=== PATIENT | male | born 1985 | race American Indian/Alaskan Native ===

== ENCOUNTER 2021-10-22 03:53 | Emergency (ER) | payer MEDICAID ==
[2021-10-22] MEDS ORDERED: Ondansetron 4 MG Tab.DIS PO ONE (03:54)
[2021-10-22] MEDS ORDERED: LORazepam 1 MG Tab PO ONE (03:54)
[2021-10-22] MEDS ORDERED: MVI, Adult with Vitamin K 10 ML, Folic Acid 1 MG, Thiamine 100 MG in Lactated Ringers 1... IV ONE ×4 (04:06)
[2021-10-22 04:43] LABS: AMPHETAMINES,URINE NEGATIVE (NEGATIVE); BARBITURATES,URINE NEGATIVE (NEGATIVE); BENZODIAZEPINE,URINE NEGATIVE (NEGATIVE); MDMA (ECSTASY), URINE NEGATIVE (NEGATIVE); METHADONE,URINE NEGATIVE (NEGATIVE); METHAMPHETAMINES,URINE NEGATIVE (NEGATIVE); OPIATES,URINE NEGATIVE (NEGATIVE); OXYCODONE,URINE NEGATIVE (NEGATIVE); PHENCYCLIDINE,URINE NEGATIVE (NEGATIVE); TCA,URINE NEGATIVE (NEGATIVE)
[2021-10-22 04:50] VITALS: PULSE 85
[2021-10-22] MEDS ORDERED: Sodium Chloride 0.9% 1,000 ML IV ONE ×2 (05:04→08:25)
[2021-10-22] MEDS ORDERED: Potassium Chloride 20 MEQ in Premix Bag 1 BAG IV ONE (05:04)
[2021-10-22 05:45] VITALS: BP 118/75
[2021-10-22] MEDS ORDERED: Magnesium Sulfate/Water 2 GM in Premix Bag 1 BAG IV ONE (07:32)
[2021-10-22 08:07] LABS: ACETAMINOPHEN 14 ug/mL (10-30 (Therapeutic))
[2021-10-22 09:16] LABS: CORONAVIRUS COVID-19 NAA NEGATIVE (NEGATIVE)
[2021-10-22] MEDS ORDERED: LORazepam 1 MG Tab ONE (13:18)
[2021-10-22] MEDS ORDERED: Ondansetron 4 MG Tab.DIS ONE (13:18)
== END 2021-10-22 14:37 | disposition other institution (70) ==
LOC: DL.ED 03:53
DX: T39.1X2A Poisoning by 4-Aminophenol derivatives, intentional self-harm, initial encounter (principal); F10.10 Alcohol abuse, uncomplicated; Z20.822 Contact with and (suspected) exposure to COVID-19
CPT/HCPCS: 0240U; 36415; 80053; 80143; 80179; 80305-QW; 80307; 81003; 82150; 83690; 83735; 85025; 93005; 93010; 96361; 96365; 96366; 96367; 99284; 99285-25; A9270-GY; J3411; J3475; J3480; J3490; J7030; J7120

== ENCOUNTER 2021-10-23 00:13 | Emergency (ER) | payer MEDICAID ==
[2021-10-23 00:23] VITALS: PULSE 64
[2021-10-23] MEDS ORDERED: Lisinopril 10 MG Tab PO ONE (00:39)
[2021-10-23] MEDS ORDERED: LORazepam 1 MG Tab PO ONE (00:39)
[2021-10-23 00:50] VITALS: BP 153/94
== END 2021-10-23 01:00 | disposition other institution (70) ==
LOC: DL.ED 00:13
DX: F10.139 Alcohol abuse with withdrawal, unspecified (principal); Z91.013 Allergy to seafood
CPT/HCPCS: 99282; 99284; A9270-GY

== ENCOUNTER 2021-12-16 20:34 | Emergency (ER) | payer MEDICAID ==
[2021-12-16] MEDS ORDERED: Sodium Chloride 0.9% 10 ML Syringe FLUSH PRN (20:43)
[2021-12-16] MEDS ORDERED: MVI, Adult with Vitamin K 10 ML, Folic Acid 1 MG, Thiamine 100 MG in Lactated Ringers 1... IV ONE ×4 (20:44)
[2021-12-16 21:45] LABS: ANION GAP 21.4 mEq/L (7-13); CHLORIDE,CL 99 mmol/L (98-107); SODIUM,NA 141 mmol/L (136-145)
[2021-12-16 21:46] LABS: ESTIMATED GFR 113 mL/min (>=60)
[2021-12-16] MEDS ORDERED: Iopamidol 612 MG/ML 100 ML Bottle IVPUSH ONE (21:49)
[2021-12-16 22:17] LABS: AMPHETAMINES,URINE NEGATIVE (NEGATIVE); BARBITURATES,URINE NEGATIVE (NEGATIVE); BENZODIAZEPINE,URINE NEGATIVE (NEGATIVE); MDMA (ECSTASY), URINE NEGATIVE (NEGATIVE); METHADONE,URINE NEGATIVE (NEGATIVE); METHAMPHETAMINES,URINE NEGATIVE (NEGATIVE); OPIATES,URINE NEGATIVE (NEGATIVE); OXYCODONE,URINE NEGATIVE (NEGATIVE); PHENCYCLIDINE,URINE NEGATIVE (NEGATIVE); TCA,URINE NEGATIVE (NEGATIVE)
[2021-12-17] MEDS ORDERED: LORazepam 1 MG Tab PO ONE (01:35)
[2021-12-17] MEDS ORDERED: LORazepam 1 MG Tab ONE (01:35)
== END 2021-12-17 01:10 | disposition other institution (70) ==
LOC: DL.ED 20:34
DX: F10.129 Alcohol abuse with intoxication, unspecified (principal); F17.210 Nicotine dependence, cigarettes, uncomplicated; Z91.048 Other nonmedicinal substance allergy status; Z20.822 Contact with and (suspected) exposure to COVID-19
CPT/HCPCS: 36415; 74176; 80053; 80305; 80307; 81003; 82150; 83605; 83690; 83735; 84443; 85025; 86140; 87040; 87635; 96365; 99285; A9270; J3411; J3490; J7120; U0002

== ENCOUNTER 2022-01-10 17:31 | Emergency (ER) | payer MEDICAID ==
[2022-01-10] MEDS ORDERED: Sodium Chloride 0.9% 10 ML Syringe FLUSH PRN (17:38)
[2022-01-10 17:53] LABS: AMPHETAMINES,URINE NEGATIVE (NEGATIVE); BARBITURATES,URINE NEGATIVE (NEGATIVE); BENZODIAZEPINE,URINE NEGATIVE (NEGATIVE); MDMA (ECSTASY), URINE NEGATIVE (NEGATIVE); METHADONE,URINE NEGATIVE (NEGATIVE); METHAMPHETAMINES,URINE NEGATIVE (NEGATIVE); OPIATES,URINE NEGATIVE (NEGATIVE); OXYCODONE,URINE NEGATIVE (NEGATIVE); PHENCYCLIDINE,URINE NEGATIVE (NEGATIVE); TCA,URINE NEGATIVE (NEGATIVE)
[2022-01-10 17:54] VITALS: BP 131/76; PULSE 106
[2022-01-10 18:21] LABS: ANION GAP 14.5 mEq/L (7-13)
[2022-01-10] MEDS ORDERED: Ondansetron 4 MG/2 ML SDV IVPUSH ONE (18:27)
== END 2022-01-10 19:43 | disposition home or self-care (01) ==
LOC: DL.ED 17:31
DX: F10.920 Alcohol use, unspecified with intoxication, uncomplicated (principal)
CPT/HCPCS: 36415; 70450; 72125; 80053; 80305; 80307; 81003; 83735; 84443; 85025; 96374; 99284; J2405; J3490

== ENCOUNTER 2022-03-21 06:49 | Emergency (ER) | payer MEDICAID ==
[2022-03-21 06:54] VITALS: BP 122/90; PULSE 74
[2022-03-21] MEDS ORDERED: Sodium Chloride 0.9% 10 ML Syringe FLUSH PRN (07:10)
[2022-03-21] MEDS ORDERED: MVI, Adult with Vitamin K 10 ML, Thiamine 100 MG, Folic Acid 1 MG in Lactated Ringers 1... IV ONE ×4 (07:10)
[2022-03-21] MEDS ORDERED: LORazepam 2 MG/ML SDV IVPUSH ONE (07:11)
[2022-03-21] MEDS ORDERED: Pantoprazole 40 MG Vial IVPUSH ONE (07:11)
[2022-03-21 07:51] LABS: PTT,PARTIAL THROMBOPLSTIN TIME 25.4 SEC (22.0-34.0)
[2022-03-21 07:53] LABS: ANION GAP 13.5 mEq/L (7-13)
[2022-03-21 08:09] LABS: CORONAVIRUS COVID-19 NAA NEGATIVE (NEGATIVE); RESPIRATORY SYNCYTIAL VIR NAA NEGATIVE (NEGATIVE)
[2022-03-21 08:13] LABS: AMPHETAMINES,URINE NEGATIVE (NEGATIVE); BARBITURATES,URINE NEGATIVE (NEGATIVE); BENZODIAZEPINE,URINE NEGATIVE (NEGATIVE); MDMA (ECSTASY), URINE NEGATIVE (NEGATIVE); METHADONE,URINE NEGATIVE (NEGATIVE); METHAMPHETAMINES,URINE NEGATIVE (NEGATIVE); OPIATES,URINE NEGATIVE (NEGATIVE); OXYCODONE,URINE NEGATIVE (NEGATIVE); PHENCYCLIDINE,URINE NEGATIVE (NEGATIVE); TCA,URINE NEGATIVE (NEGATIVE)
== END 2022-03-21 11:05 | disposition home or self-care (01) ==
LOC: DL.ED 06:49
DX: R10.11 Right upper quadrant pain (principal); F10.10 Alcohol abuse, uncomplicated; Y90.8 Blood alcohol level of 240 mg/100 ml or more; I10 Essential (primary) hypertension; F41.9 Anxiety disorder, unspecified; Z91.013 Allergy to seafood; Z79.899 Other long term (current) drug therapy; Z20.822 Contact with and (suspected) exposure to COVID-19
CPT/HCPCS: 0241U; 36415; 80053; 80143; 80179; 80305-QW; 80307; 81003; 82150; 83690; 83735; 85025; 85610; 85730; 96365; 96375; 99284; 99284-25; C9113; J2060; J3411; J3490; J7120

== ENCOUNTER 2022-04-10 20:02 | Emergency (ER) | payer MEDICAID ==
[2022-04-10 20:11] VITALS: BP 140/91; PULSE 93
[2022-04-10] MEDS: Sodium Chloride 0.9% 10 ML Syringe FLUSH PRN (20:30)
[2022-04-10] MEDS: Ondansetron 4 MG/2 ML SDV IVPUSH ONE (21:02)
[2022-04-10 21:11] LABS: CHLORIDE,CL 102 mmol/L (98-107); SODIUM,NA 143 mmol/L (136-145)
[2022-04-10 21:15] LABS: ACETAMINOPHEN 0 ug/mL (10-30 (Therapeutic)); ESTIMATED GFR 117 mL/min (>=60)
[2022-04-10 21:24] LABS: AMPHETAMINES,URINE NEGATIVE (NEGATIVE); BARBITURATES,URINE NEGATIVE (NEGATIVE); BENZODIAZEPINE,URINE NEGATIVE (NEGATIVE); MDMA (ECSTASY), URINE NEGATIVE (NEGATIVE); METHADONE,URINE NEGATIVE (NEGATIVE); METHAMPHETAMINES,URINE NEGATIVE (NEGATIVE); OPIATES,URINE NEGATIVE (NEGATIVE); OXYCODONE,URINE NEGATIVE (NEGATIVE); PHENCYCLIDINE,URINE NEGATIVE (NEGATIVE); TCA,URINE NEGATIVE (NEGATIVE)
[2022-04-10] MEDS: Potassium Chloride 20 MEQ in Premix Bag 1 BAG IV ONE (22:30)
[2022-04-10] MEDS: Sodium Chloride 0.9% 1,000 ML IV ONE (23:14)
[2022-04-11] MEDS: Sodium Chloride 0.9% 1,000 ML IV ONE (01:06)
== END 2022-04-11 06:07 | disposition home or self-care (01) ==
LOC: DL.ED 20:02
DX: F10.929 Alcohol use, unspecified with intoxication, unspecified (principal); Z91.013 Allergy to seafood; Y90.8 Blood alcohol level of 240 mg/100 ml or more
CPT/HCPCS: 36415; 71045; 80053; 80143; 80179; 80305-QW; 80307; 81003; 82150; 83605; 83690; 83735; 84484; 85025; 86140; 93005; 93010; 96361; 96365; 96366; 96375; 99284; 99284-25; J2405; J3480; J3490; J7030

== ENCOUNTER 2022-10-29 09:37 | Emergency (ER) | payer MEDICAID ==
[~2022-10-29 09:37] MED LIST: Ondansetron 4 MG/2 ML SDV IVPUSH ONE; Sodium Chloride 0.9% 1,000 ML IV ONE; Sodium Chloride 0.9% 10 ML Syringe FLUSH PRN
[2022-10-29 09:41] LABS: BASOPHILS PERCENT AUTO 0.9 % (0.0-1.0); EOSINOPHILS PERCENT AUTO 3.3 % (1.0-3.0); HEMATOCRIT 43.9 % (40.0-54.0); HEMOGLOBIN 15.5 g/dL (14.0-18.0); LYMPHOCYTES PERCENT AUTO 53.6 % (20.5-50.1); MEAN CORPUSCULAR HEMOGLOBIN 32.6 pg (27.0-34.0); MEAN CORPUSCULAR HGB CONC 35.3 g/dL (33.0-35.0); MEAN CORPUSCULAR VOLUME 92.4 fL (80-100); MONOCYTES PERCENT AUTO 14.7 % (2-8); NEUTROPHILS PERCENT AUTO 27.5 % (42.2-75.2); PLATELET COUNT,PLT 189 10^3/uL (150-450); RED BLOOD CELL COUNT 4.75 10^6/uL (4.6-6.2); WHITE BLOOD CELL COUNT,WBC 4.5 10^3/uL (5.0-10.0)
[2022-10-29 09:59] LABS: PROTHROMBIN TIME 10.4 SEC (9.0-12.0)
[2022-10-29 10:04] LABS: B-TYPE NATRIURETIC PEPTIDE,BNP < 5 pg/ml (0-100)
[2022-10-29 10:11] LABS: ALANINE AMINOTRANSFERASE,ALT 68 U/L (16-63); ALBUMIN 3.3 g/dL (3.4-5.0); ALKALINE PHOSPHATASE 92 U/L (46-116); AMYLASE 37 U/L (25-115); ASPARTATE AMNIOTRANSFERASE,AST 161 U/L (15-37); BILIRUBIN TOTAL 0.5 mg/dL (0.2-1.0); BLOOD UREA NITROGEN,BUN 4 mg/dL (7-18); BUN/CREATININE RATIO 5.5 (No establ ref range); C-REACTIVE PROTEIN 0.13 ng/dL (<=0.30); CALCIUM 8.1 mg/dL (8.5-10.1); CARBON DIOXIDE,CO2 30 mmol/L (21-32); CHLORIDE,CL 105 mmol/L (98-107); CREATININE 0.73 mg/dL (0.70-1.30); EST CRCL DRUG DOSING (CG) 140.28 mL/min; GLUCOSE RANDOM 116 mg/dL (70-99); LIPASE 34 U/L (16-77); MAGNESIUM 1.7 mg/dL (1.8-2.4); PROTEIN TOTAL,TP 7.8 g/dL (6.4-8.2); SODIUM,NA 146 mmol/L (136-145)
[2022-10-29 10:16] LABS: A/G RATIO 0.73; ESTIMATED GFR 119 mL/min (>=60)
[2022-10-29 10:17] LABS: ETHANOL BLOOD MEDICAL 440 mg/dL (0)
[2022-10-29] MEDS ORDERED: Potassium Chloride 10 MEQ Tab.ER PO ONE (10:26)
[2022-10-29] MEDS ORDERED: Sodium Chloride 0.9% 1,000 ML IV ONE ×2 (11:14→12:56)
[2022-10-29 11:18] LABS: APPEARANCE,URINE CLEAR (CLEAR); BILIRUBIN,URINE NEGATIVE (NEGATIVE); COLOR,URINE YELLOW (YELLOW); GLUCOSE,URINE NEGATIVE (NEGATIVE); KETONES,URINE NEGATIVE (NEGATIVE); LEUKOCYTE ESTERASE,URINE NEGATIVE (NEGATIVE); NITRITE,URINE NEGATIVE (NEGATIVE); OCCULT BLOOD,URINE NEGATIVE (NEGATIVE); PH,URINE 6.5 (5.0-9.0); PROTEIN,URINE NEGATIVE (NEGATIVE); UROBILINOGEN,URINE 0.2 mg/dL (0.2-1.0)
[2022-10-29 11:21] LABS: AMPHETAMINES,URINE NEGATIVE (NEGATIVE); BARBITURATES,URINE NEGATIVE (NEGATIVE); BENZODIAZEPINE,URINE NEGATIVE (NEGATIVE); MDMA (ECSTASY), URINE NEGATIVE (NEGATIVE); METHADONE,URINE NEGATIVE (NEGATIVE); METHAMPHETAMINES,URINE NEGATIVE (NEGATIVE); OPIATES,URINE NEGATIVE (NEGATIVE); PHENCYCLIDINE,URINE NEGATIVE (NEGATIVE); TCA,URINE NEGATIVE (NEGATIVE)
[2022-10-29 11:22] LABS: OXYCODONE,URINE NEGATIVE (NEGATIVE)
[2022-10-29] MEDS ORDERED: MVI, Adult with Vitamin K 10 ML, Folic Acid 1 MG, Thiamine 100 MG in Lactated Ringers 1... IV ONE ×4 (11:44)
[2022-10-29 12:41] VITALS: BP 117/84; PULSE 78
== END 2022-10-29 16:40 | disposition home or self-care (01) ==
LOC: DL.ED 09:37
DX: R07.89 Other chest pain (principal); F41.9 Anxiety disorder, unspecified; F10.129 Alcohol abuse with intoxication, unspecified; I10 Essential (primary) hypertension; Z91.013 Allergy to seafood; Z20.822 Contact with and (suspected) exposure to COVID-19
CPT/HCPCS: 36415; 71045; 80053; 80305-QW; 80307; 81003; 82150; 83605; 83690; 83735; 83880; 84145; 84484; 85025; 85610; 85730; 86140; 87804; 93005; 93010; 96361; 96365; 96375; 99283; 99285-25; A9270-GY; J2405; J3411; J3490; J7030; J7120; U0002

== ENCOUNTER 2022-12-21 18:10 | Emergency (ER) | payer MEDICAID ==
[2022-12-21] MEDS ORDERED: Sodium Chloride 0.9% 10 ML Syringe FLUSH PRN (19:41)
[2022-12-21] MEDS ORDERED: Lactated Ringers 1,000 ML IV ONE (19:43)
[2022-12-21] MEDS ORDERED: Ondansetron 4 MG/2 ML SDV IVPUSH ONE (19:44)
[2022-12-21 19:53] LABS: BASOPHILS PERCENT AUTO 2.4 % (0.0-1.0); EOSINOPHILS PERCENT AUTO 3.6 % (1.0-3.0); HEMOGLOBIN 15.1 g/dL (14.0-18.0); LYMPHOCYTES PERCENT AUTO 46.9 % (20.5-50.1); MEAN CORPUSCULAR HEMOGLOBIN 32.6 pg (27.0-34.0); MEAN CORPUSCULAR HGB CONC 35.1 g/dL (33.0-35.0); MEAN CORPUSCULAR VOLUME 92.9 fL (80-100); MONOCYTES PERCENT AUTO 5.6 % (2-8); NEUTROPHILS PERCENT AUTO 41.5 % (42.2-75.2); PLATELET COUNT,PLT 269 10^3/uL (150-450); RED BLOOD CELL COUNT 4.63 10^6/uL (4.6-6.2); WHITE BLOOD CELL COUNT,WBC 3.4 10^3/uL (5.0-10.0)
[2022-12-21] MEDS ORDERED: diphenhydrAMINE 12.5 MG/5 ML Liquid 5 ML UD Cup PO STA (20:03)
[2022-12-21] MEDS ORDERED: Lidocaine 2% Viscous Solution 15 ML UD PO ONE (20:07)
[2022-12-21] MEDS ORDERED: Aluminum Hydroxide/Magnesium Hydroxide/Simethicone Susp 30 ML Cup PO ONE (20:07)
[2022-12-21 20:13] LABS: ALBUMIN 3.3 g/dL (3.4-5.0); ANION GAP 12.4 mEq/L (7-13); BILIRUBIN TOTAL 0.5 mg/dL (0.2-1.0); BUN/CREATININE RATIO 3.9 (No establ ref range); CREATININE 0.76 mg/dL (0.70-1.30); EST CRCL DRUG DOSING (CG) 138.99 mL/min; MAGNESIUM 1.5 mg/dL (1.8-2.4); POTASSIUM,K 3.4 mmol/L (3.5-5.1); PROTEIN TOTAL,TP 8.1 g/dL (6.4-8.2)
[2022-12-21 20:14] LABS: A/G RATIO 0.69
[2022-12-21] MEDS ORDERED: Potassium Chloride 10 MEQ Tab.ER PO ONE (20:31)
[2022-12-21] MEDS ORDERED: Magnesium Sulfate/Water 2 GM in Premix Bag 1 BAG IV ONE (20:31)
[2022-12-21 20:43] LABS: AMPHETAMINES,URINE NEGATIVE (NEGATIVE); BARBITURATES,URINE NEGATIVE (NEGATIVE); BENZODIAZEPINE,URINE NEGATIVE (NEGATIVE); MDMA (ECSTASY), URINE NEGATIVE (NEGATIVE); METHADONE,URINE NEGATIVE (NEGATIVE); METHAMPHETAMINES,URINE NEGATIVE (NEGATIVE); OPIATES,URINE NEGATIVE (NEGATIVE); OXYCODONE,URINE NEGATIVE (NEGATIVE); PHENCYCLIDINE,URINE NEGATIVE (NEGATIVE); TCA,URINE NEGATIVE (NEGATIVE)
[2022-12-22 00:13] VITALS: BP 104/67; PULSE 100
== END 2022-12-22 00:25 | disposition home or self-care (01) ==
LOC: DL.ED 18:10
DX: K21.9 Gastro-esophageal reflux disease without esophagitis (principal); F10.229 Alcohol dependence with intoxication, unspecified; E83.42 Hypomagnesemia; E87.6 Hypokalemia; I10 Essential (primary) hypertension; E66.9 Obesity, unspecified; Z91.013 Allergy to seafood
CPT/HCPCS: 36415; 80053; 80305; 80307; 83735; 85025; 93005; 96361; 96365; 96375; 99285; A9270; J2405; J3475; J7120; J3490

== ENCOUNTER 2022-12-28 22:56 | Emergency (ER) | payer MEDICAID ==
[2022-12-28] MEDS ORDERED: Sodium Chloride 0.9% 10 ML Syringe FLUSH PRN (23:06)
[2022-12-28 23:24] LABS: BASOPHILS PERCENT AUTO 2.5 % (0.0-1.0); EOSINOPHILS PERCENT AUTO 0.8 % (1.0-3.0); HEMATOCRIT 44.5 % (40.0-54.0); HEMOGLOBIN 15.6 g/dL (14.0-18.0); LYMPHOCYTES PERCENT AUTO 39.6 % (20.5-50.1); MEAN CORPUSCULAR HEMOGLOBIN 32.4 pg (27.0-34.0); MEAN CORPUSCULAR HGB CONC 35.1 g/dL (33.0-35.0); MEAN CORPUSCULAR VOLUME 92.5 fL (80-100); MONOCYTES PERCENT AUTO 7.3 % (2-8); NEUTROPHILS PERCENT AUTO 49.8 % (42.2-75.2); PLATELET COUNT,PLT 180 10^3/uL (150-450); RED BLOOD CELL COUNT 4.81 10^6/uL (4.6-6.2); WHITE BLOOD CELL COUNT,WBC 3.6 10^3/uL (5.0-10.0)
[2022-12-28] MEDS ORDERED: MVI, Adult with Vitamin K 10 ML, Folic Acid 1 MG, Thiamine 100 MG in Lactated Ringers 1... IV ONE ×4 (23:39)
[2022-12-28 23:49] LABS: PROTHROMBIN TIME 10.4 SEC (9.0-12.0); PTT,PARTIAL THROMBOPLSTIN TIME 25.9 SEC (22.0-34.0)
[2022-12-28 23:53] LABS: B-TYPE NATRIURETIC PEPTIDE,BNP < 5 pg/ml (0-100)
[2022-12-28 23:54] LABS: A/G RATIO 0.7; ALANINE AMINOTRANSFERASE,ALT 79 U/L (16-63); ALBUMIN 3.5 g/dL (3.4-5.0); ALKALINE PHOSPHATASE 95 U/L (46-116); AMYLASE 28 U/L (25-115); ASPARTATE AMNIOTRANSFERASE,AST 166 U/L (15-37); BILIRUBIN TOTAL 0.9 mg/dL (0.2-1.0); BLOOD UREA NITROGEN,BUN 4 mg/dL (7-18); BUN/CREATININE RATIO 4.3 (No establ ref range); CARBON DIOXIDE,CO2 26 mmol/L (21-32); CHLORIDE,CL 100 mmol/L (98-107); CREATININE 0.92 mg/dL (0.70-1.30); GLUCOSE RANDOM 120 mg/dL (70-99); LIPASE 25 U/L (16-77); MAGNESIUM 1.4 mg/dL (1.8-2.4); PROTEIN TOTAL,TP 8.4 g/dL (6.4-8.2); SODIUM,NA 141 mmol/L (136-145)
[2022-12-28 23:55] LABS: C-REACTIVE PROTEIN < 0.50 ng/dL (<=0.50); ESTIMATED GFR 109 mL/min (>=60); ETHANOL BLOOD MEDICAL 473 mg/dL (0); LACTIC ACID 5.2 mmol/L (0.4-2.0)
[2022-12-28] MEDS ORDERED: Sodium Chloride 0.9% 1,000 ML IV ONE (23:55)
[2022-12-29] MEDS ORDERED: Iopamidol 612 MG/ML 100 ML Bottle IVPUSH ONE (00:02)
[2022-12-29 00:28] VITALS: BP 141/90; PULSE 132
[2022-12-29] MEDS ORDERED: hydrOXYzine HCl 25 MG Tab PO ONE (01:36)
[2022-12-29] MEDS ORDERED: Potassium Chloride 10 MEQ Tab.ER PO ONE (01:36)
[2022-12-29] MEDS ORDERED: Magnesium Sulfate/Water 2 GM in Premix Bag 1 BAG IV ONE (01:37)
[2022-12-29 03:08] LABS: APPEARANCE,URINE CLEAR (CLEAR); BILIRUBIN,URINE NEGATIVE (NEGATIVE); COLOR,URINE YELLOW (YELLOW); GLUCOSE,URINE NEGATIVE (NEGATIVE); KETONES,URINE NEGATIVE (NEGATIVE); LEUKOCYTE ESTERASE,URINE NEGATIVE (NEGATIVE); NITRITE,URINE NEGATIVE (NEGATIVE); OCCULT BLOOD,URINE NEGATIVE (NEGATIVE); PH,URINE 6.5 (5.0-9.0); PROTEIN,URINE NEGATIVE (NEGATIVE); UROBILINOGEN,URINE 0.2 mg/dL (0.2-1.0)
[2022-12-29 03:09] LABS: AMPHETAMINES,URINE NEGATIVE (NEGATIVE); BARBITURATES,URINE NEGATIVE (NEGATIVE); BENZODIAZEPINE,URINE NEGATIVE (NEGATIVE); MDMA (ECSTASY), URINE NEGATIVE (NEGATIVE); METHADONE,URINE NEGATIVE (NEGATIVE); METHAMPHETAMINES,URINE NEGATIVE (NEGATIVE); OPIATES,URINE NEGATIVE (NEGATIVE); OXYCODONE,URINE NEGATIVE (NEGATIVE); PHENCYCLIDINE,URINE NEGATIVE (NEGATIVE); TCA,URINE NEGATIVE (NEGATIVE)
== END 2022-12-29 05:10 ==
LOC: DL.ED 22:56
DX: F10.929 Alcohol use, unspecified with intoxication, unspecified (principal); E83.42 Hypomagnesemia; E87.6 Hypokalemia; F41.9 Anxiety disorder, unspecified; R94.5 Abnormal results of liver function studies; R74.01 Elevation of levels of liver transaminase levels; S00.31XA Abrasion of nose, initial encounter; W18.30XA Fall on same level, unspecified, initial encounter; Z87.891 Personal history of nicotine dependence; I10 Essential (primary) hypertension; Z79.899 Other long term (current) drug therapy
CPT/HCPCS: 36415; 70450; 71045; 72125; 74177; 80053; 80305-QW; 80307; 81003; 82150; 83605; 83690; 83735; 83880; 84145; 84484; 85025; 85610; 85730; 86140; 93005; 93010; 96361; 96365; 96366; 96367; 99285; 99285-25; A9270-GY; J3411; J3475; J3490; J7030; J7120; Q9967

== ENCOUNTER 2024-05-04 02:51 | Emergency (ER) | payer MEDICAID ==
[2024-05-04 03:10] LABS: EOSINOPHILS PERCENT AUTO 0.6 % (1.0-3.0); HEMATOCRIT 44.5 % (40.0-54.0); HEMOGLOBIN 15.1 g/dL (14.0-18.0); LYMPHOCYTES PERCENT AUTO 52.4 % (20.5-50.1); MEAN CORPUSCULAR HEMOGLOBIN 30.1 pg (27.0-34.0); MEAN CORPUSCULAR HGB CONC 33.9 g/dL (33.0-35.0); MEAN CORPUSCULAR VOLUME 88.8 fL (80-100); MONOCYTES PERCENT AUTO 7.9 % (2-8); NEUTROPHILS PERCENT AUTO 38.1 % (42.2-75.2); PLATELET COUNT,PLT 204 10^3/uL (150-450); RED BLOOD CELL COUNT 5.01 10^6/uL (4.6-6.2); WHITE BLOOD CELL COUNT,WBC 5.2 10^3/uL (5.0-10.0)
[2024-05-04] MEDS: GI Cocktail Oral Solution 30 ML PO ONE (03:15)
[2024-05-04] MEDS: Ketorolac 30 MG/ML SDV IVPUSH ONE (03:27)
[2024-05-04] MEDS: Albuterol/Ipratropium 3.0-0.5 MG/3 ML Neb Soln NEB ONE (03:30)
[2024-05-04 04:15] LABS: A/G RATIO 0.8; ALANINE AMINOTRANSFERASE,ALT 25 U/L (16-63); ALBUMIN 3.6 g/dL (3.4-5.0); ALKALINE PHOSPHATASE 108 U/L (46-116); ANION GAP 14.5 mEq/L (7-13); ASPARTATE AMNIOTRANSFERASE,AST 45 U/L (15-37); BILIRUBIN TOTAL 0.5 mg/dL (0.2-1.0); BLOOD UREA NITROGEN,BUN 13 mg/dL (7-18); BUN/CREATININE RATIO 13.4 (No establ ref range); CALCIUM 8.3 mg/dL (8.5-10.1); CARBON DIOXIDE,CO2 29 mmol/L (21-32); CHLORIDE,CL 98 mmol/L (98-107); CREATININE 0.97 mg/dL (0.70-1.30); EST CRCL DRUG DOSING (CG) 107.82 mL/min; ESTIMATED GFR 101 mL/min (>=60); GLUCOSE RANDOM 103 mg/dL (70-99); LIPASE 33 U/L (16-77); MAGNESIUM 1.9 mg/dL (1.8-2.4); POTASSIUM,K 3.5 mmol/L (3.5-5.1); PROTEIN TOTAL,TP 8.1 g/dL (6.4-8.2); SODIUM,NA 138 mmol/L (136-145)
[2024-05-04 04:17] LABS: ETHANOL BLOOD MEDICAL 401 mg/dL (0)
[2024-05-04 07:39] VITALS: BP 139/33; PULSE 91
== END 2024-05-04 08:16 | disposition home or self-care (01) ==
LOC: DL.ED 02:51
DX: K21.9 Gastro-esophageal reflux disease without esophagitis (principal); F10.929 Alcohol use, unspecified with intoxication, unspecified; I10 Essential (primary) hypertension; E66.9 Obesity, unspecified; J45.909 Unspecified asthma, uncomplicated; Z91.013 Allergy to seafood; Z68.39 Body mass index [BMI] 39.0-39.9, adult
CPT/HCPCS: 36415; 71045; 80053; 80307; 83690; 83735; 84484; 85025; 93005; 93010; 96374; 99284; 99285-25; A9270-GY; J1885

== ENCOUNTER 2024-05-23 06:43 | Emergency (ER) | payer MEDICAID ==
[2024-05-23] MEDS ORDERED: Nitroglycerin 0.4 MG Tab.SL SL PRN (06:49)
[2024-05-23] MEDS ORDERED: Sodium Chloride 0.9% 10 ML Syringe FLUSH PRN (06:49)
[2024-05-23 07:07] LABS: EOSINOPHILS PERCENT AUTO 0.4 % (1.0-3.0); HEMATOCRIT 44.9 % (40.0-54.0); HEMOGLOBIN 15.8 g/dL (14.0-18.0); LYMPHOCYTES PERCENT AUTO 53.3 % (20.5-50.1); MEAN CORPUSCULAR HEMOGLOBIN 30.7 pg (27.0-34.0); MEAN CORPUSCULAR HGB CONC 35.2 g/dL (33.0-35.0); MEAN CORPUSCULAR VOLUME 87.4 fL (80-100); MONOCYTES PERCENT AUTO 6.4 % (2-8); NEUTROPHILS PERCENT AUTO 38.9 % (42.2-75.2); PLATELET COUNT,PLT 189 10^3/uL (150-450); RED BLOOD CELL COUNT 5.14 10^6/uL (4.6-6.2)
[2024-05-23] MEDS: Aspirin 81 MG Tab.Chew PO ONE (07:07)
[2024-05-23 07:25] LABS: A/G RATIO 0.8; ALBUMIN 3.6 g/dL (3.4-5.0); ANION GAP 24.1 mEq/L (7-13); BILIRUBIN TOTAL 1.3 mg/dL (0.2-1.0); BUN/CREATININE RATIO 4.5 (No establ ref range); CALCIUM 8.3 mg/dL (8.5-10.1); CREATININE 0.88 mg/dL (0.70-1.30); EST CRCL DRUG DOSING (CG) 118.84 mL/min; MAGNESIUM 1.5 mg/dL (1.8-2.4); POTASSIUM,K 3.1 mmol/L (3.5-5.1); PROTEIN TOTAL,TP 8.4 g/dL (6.4-8.2)
[2024-05-23 07:51] VITALS: BP 137/94; PULSE 111
[2024-05-23 08:16] LABS: PROTHROMBIN TIME 10.4 SEC (9.0-12.0); PTT,PARTIAL THROMBOPLSTIN TIME 24.6 SEC (22.0-34.0)
[2024-05-23] MEDS: Acetaminophen 325 MG Tab PO ONE (10:08)
== END 2024-05-23 10:23 | disposition home or self-care (01) ==
LOC: DL.ED 06:43
DX: R07.2 Precordial pain (principal); F10.920 Alcohol use, unspecified with intoxication, uncomplicated; I10 Essential (primary) hypertension; J45.909 Unspecified asthma, uncomplicated; E66.9 Obesity, unspecified; Z91.013 Allergy to seafood; Z79.899 Other long term (current) drug therapy; Z68.37 Body mass index [BMI] 37.0-37.9, adult
CPT/HCPCS: 36415; 71045; 80053; 80307; 83735; 83880; 84484; 85025; 85610; 85730; 93005; 93010; 99284; 99285; A9270

== ENCOUNTER 2024-08-16 14:59 | Emergency (ER) | payer MEDICAID ==
[2024-08-16] MEDS ORDERED: Sodium Chloride 0.9% 10 ML Syringe FLUSH PRN (15:05)
[2024-08-16] MEDS: MVI, Adult with Vitamin K 10 ML, Folic Acid 1 MG, Thiamine 100 MG in Lactated Ringers 1... IV ONE (15:40)
[2024-08-16 16:01] LABS: BASOPHILS PERCENT AUTO 1.1 % (0.0-1.0); EOSINOPHILS PERCENT AUTO 6.5 % (1.0-3.0); LYMPHOCYTES PERCENT AUTO 48.8 % (20.5-50.1); MONOCYTES PERCENT AUTO 10.5 % (2-8); NEUTROPHILS PERCENT AUTO 33.1 % (42.2-75.2); PLATELET COUNT,PLT 272 10^3/uL (150-450); RED BLOOD CELL COUNT 4.41 10^6/uL (4.6-6.2); WHITE BLOOD CELL COUNT,WBC 4.5 10^3/uL (5.0-10.0)
[2024-08-16 16:17] LABS: A/G RATIO 0.71; ALANINE AMINOTRANSFERASE,ALT 78.0 U/L (16-63); ASPARTATE AMNIOTRANSFERASE,AST 161.0 U/L (15-37); BILIRUBIN TOTAL 0.4 mg/dL (0.2-1.0); BLOOD UREA NITROGEN,BUN 1.0 mg/dL (7-18); CARBON DIOXIDE,CO2 27.0 mmol/L (21-32); CHLORIDE,CL 102.0 mmol/L (98-107); CREATININE 0.72 mg/dL (0.70-1.30); EST CRCL DRUG DOSING (CG) 143.8 mL/min; ESTIMATED GFR 118.0 mL/min (>=60); ETHANOL BLOOD MEDICAL 270.0 mg/dL (0); GLUCOSE RANDOM 102.0 mg/dL (70-99); POTASSIUM,K 3.2 mmol/L (3.5-5.1); PROTEIN TOTAL,TP 7.2 g/dL (6.4-8.2); SODIUM,NA 139.0 mmol/L (136-145)
[2024-08-16 16:18] LABS: APPEARANCE,URINE CLEAR (CLEAR); GLUCOSE,URINE NEGATIVE (NEGATIVE); OCCULT BLOOD,URINE NEGATIVE (NEGATIVE)
[2024-08-16 16:21] LABS: LACTIC ACID 2.1 mmol/L (0.4-2.0)
[2024-08-16 16:22] LABS: AMPHETAMINES,URINE NEGATIVE (NEGATIVE); BARBITURATES,URINE NEGATIVE (NEGATIVE); MDMA (ECSTASY), URINE NEGATIVE (NEGATIVE); METHAMPHETAMINES,URINE NEGATIVE (NEGATIVE); OPIATES,URINE NEGATIVE (NEGATIVE); OXYCODONE,URINE NEGATIVE (NEGATIVE); PHENCYCLIDINE,URINE NEGATIVE (NEGATIVE); TCA,URINE NEGATIVE (NEGATIVE)
[2024-08-16] MEDS: Potassium Chloride 10 MEQ Tab.ER PO ONE (16:49)
[2024-08-16 17:42] VITALS: BP 122/65; PULSE 80
== END 2024-08-16 17:40 | disposition home or self-care (01) ==
LOC: DL.ED 14:59
DX: F10.10 Alcohol abuse, uncomplicated (principal); E87.6 Hypokalemia; J45.909 Unspecified asthma, uncomplicated; Z91.013 Allergy to seafood; Z79.51 Long term (current) use of inhaled steroids; Y90.8 Blood alcohol level of 240 mg/100 ml or more
CPT/HCPCS: 36415; 71045; 80053; 80305; 80307; 81003; 83605; 83735; 83880; 85025; 94640; 96365; 99284; 99285; A9270; J3411; J7120; J7620; J3490

== ENCOUNTER 2024-12-13 18:38 | Inpatient (IN) | payer MEDICAID ==
[2024-12-13 19:04] LABS: BASOPHILS PERCENT AUTO 0.8 % (0.0-1.0); EOSINOPHILS PERCENT AUTO 1.5 % (1.0-3.0); LYMPHOCYTES PERCENT AUTO 47.2 % (20.5-50.1); MONOCYTES PERCENT AUTO 5.4 % (2-8); NEUTROPHILS PERCENT AUTO 45.1 % (42.2-75.2); PLATELET COUNT,PLT 215 10^3/uL (150-450); RED BLOOD CELL COUNT 4.92 10^6/uL (4.6-6.2); WHITE BLOOD CELL COUNT,WBC 3.9 10^3/uL (5.0-10.0)
[2024-12-13] MEDS: Ondansetron 4 MG/2 ML SDV IVPUSH ONE (19:07)
[2024-12-13] MEDS: MVI, Adult with Vitamin K 10 ML, Folic Acid 1 MG, Thiamine 100 MG in Lactated Ringers 1... IV ONE (19:07)
[2024-12-13] MEDS: GI Cocktail Oral Solution 30 ML PO ONE (19:26)
[2024-12-13 19:28] LABS: A/G RATIO 0.8; ALANINE AMINOTRANSFERASE,ALT 20.0 U/L (16-63); ASPARTATE AMNIOTRANSFERASE,AST 31.0 U/L (15-37); BILIRUBIN TOTAL 0.4 mg/dL (0.2-1.0); BLOOD UREA NITROGEN,BUN 9.0 mg/dL (7-18); CARBON DIOXIDE,CO2 27.0 mmol/L (21-32); CHLORIDE,CL 105.0 mmol/L (98-107); CREATININE 0.73 mg/dL (0.70-1.30); EST CRCL DRUG DOSING (CG) 141.83 mL/min; GLUCOSE RANDOM 106.0 mg/dL (70-99); POTASSIUM,K 3.4 mmol/L (3.5-5.1); PROTEIN TOTAL,TP 7.5 g/dL (6.4-8.2); SODIUM,NA 146.0 mmol/L (136-145)
[2024-12-13 19:30] LABS: ESTIMATED GFR 117.0 mL/min (>=60)
[2024-12-13 19:31] LABS: ETHANOL BLOOD MEDICAL 458.0 mg/dL (0)
[2024-12-13 20:07] LABS: AMPHETAMINES,URINE NEGATIVE (NEGATIVE); BARBITURATES,URINE NEGATIVE (NEGATIVE); MDMA (ECSTASY), URINE NEGATIVE (NEGATIVE); METHAMPHETAMINES,URINE NEGATIVE (NEGATIVE); OPIATES,URINE NEGATIVE (NEGATIVE); OXYCODONE,URINE NEGATIVE (NEGATIVE); PHENCYCLIDINE,URINE NEGATIVE (NEGATIVE); TCA,URINE NEGATIVE (NEGATIVE)
[2024-12-13 21:24] LABS: B-TYPE NATRIURETIC PEPTIDE,BNP 35.0 pg/ml (0-100); CREATINE KINASE,CK 79 U/L (39-308)
[2024-12-13] MEDS: Potassium Chloride 20 MEQ in Premix Bag 1 BAG IV ONE (21:44)
[2024-12-13] MEDS: Heparin Sodium 5,000 Units/ML Vial SUBCUT SCH (21:46)
[2024-12-13 21:47] LABS: FOLIC ACID 2.2 ng/mL (8.6-58.9)
[2024-12-14 06:24] LABS: PLATELET COUNT,PLT 206.0 10^3/uL (150-450); RED BLOOD CELL COUNT 4.44 10^6/uL (4.6-6.2); WHITE BLOOD CELL COUNT,WBC 3.9 10^3/uL (5.0-10.0)
[2024-12-14 06:51] LABS: A/G RATIO 0.76; ALANINE AMINOTRANSFERASE,ALT 21.0 U/L (16-63); ASPARTATE AMNIOTRANSFERASE,AST 31.0 U/L (15-37); BILIRUBIN DIRECT 0.1 mg/dL (0.0-0.2); BILIRUBIN INDIRECT 0.3; BILIRUBIN TOTAL 0.4 mg/dL (0.2-1.0); BLOOD UREA NITROGEN,BUN 10.0 mg/dL (7-18); CARBON DIOXIDE,CO2 28.0 mmol/L (21-32); CHLORIDE,CL 106.0 mmol/L (98-107); CREATININE 0.66 mg/dL (0.70-1.30); EST CRCL DRUG DOSING (CG) 156.88 mL/min; ESTIMATED GFR 121.0 mL/min (>=60); GLUCOSE RANDOM 94.0 mg/dL (70-99); PHOSPHORUS 3.3 mg/dL (2.6-4.7); POTASSIUM,K 3.7 mmol/L (3.5-5.1); PROTEIN TOTAL,TP 6.7 g/dL (6.4-8.2); SODIUM,NA 146.0 mmol/L (136-145)
[2024-12-14] MEDS: Potassium Chloride 10 MEQ Tab.ER PO SCH (08:08)
[2024-12-14] MEDS: Metoprolol Tartrate 5 MG/5 ML SDV IVPUSH SCH (18:39)
[2024-12-15 06:30] LABS: BASOPHILS PERCENT AUTO 1.1 % (0.0-1.0); EOSINOPHILS PERCENT AUTO 5.0 % (1.0-3.0); LYMPHOCYTES PERCENT AUTO 40.1 % (20.5-50.1); MONOCYTES PERCENT AUTO 11.9 % (2-8); NEUTROPHILS PERCENT AUTO 41.9 % (42.2-75.2); PLATELET COUNT,PLT 175 10^3/uL (150-450); RED BLOOD CELL COUNT 4.54 10^6/uL (4.6-6.2); WHITE BLOOD CELL COUNT,WBC 3.8 10^3/uL (5.0-10.0)
[2024-12-15 06:40] LABS: BLOOD UREA NITROGEN,BUN 8.0 mg/dL (7-18); CARBON DIOXIDE,CO2 27.0 mmol/L (21-32); CHLORIDE,CL 104.0 mmol/L (98-107); CREATININE 0.67 mg/dL (0.70-1.30); EST CRCL DRUG DOSING (CG) 154.53 mL/min; GLUCOSE RANDOM 94.0 mg/dL (70-99); POTASSIUM,K 3.3 mmol/L (3.5-5.1); SODIUM,NA 143.0 mmol/L (136-145)
[2024-12-15 06:41] LABS: ESTIMATED GFR 120.0 mL/min (>=60)
[2024-12-15] MEDS: Ondansetron 4 MG/2 ML SDV IVPUSH PRN (08:52)
[2024-12-15] MEDS: Potassium Chloride 20 MEQ in Premix Bag 1 BAG IV ONE (10:06)
[2024-12-15] MEDS: Potassium Chloride 10 MEQ Tab.ER PO SCH (20:52)
[2024-12-16 06:22] LABS: BASOPHILS PERCENT AUTO 0.5 % (0.0-1.0); EOSINOPHILS PERCENT AUTO 9.6 % (1.0-3.0); LYMPHOCYTES PERCENT AUTO 36.3 % (20.5-50.1); MONOCYTES PERCENT AUTO 9.1 % (2-8); NEUTROPHILS PERCENT AUTO 44.5 % (42.2-75.2); PLATELET COUNT,PLT 167 10^3/uL (150-450); RED BLOOD CELL COUNT 4.69 10^6/uL (4.6-6.2); WHITE BLOOD CELL COUNT,WBC 4.1 10^3/uL (5.0-10.0)
[2024-12-16 06:47] LABS: BLOOD UREA NITROGEN,BUN 8.0 mg/dL (7-18); CARBON DIOXIDE,CO2 25.0 mmol/L (21-32); CHLORIDE,CL 106.0 mmol/L (98-107); CREATININE 0.58 mg/dL (0.70-1.30); EST CRCL DRUG DOSING (CG) 178.51 mL/min; ESTIMATED GFR 126.0 mL/min (>=60); GLUCOSE RANDOM 93.0 mg/dL (70-99); POTASSIUM,K 3.5 mmol/L (3.5-5.1); SODIUM,NA 142.0 mmol/L (136-145)
[2024-12-16] MEDS: Sodium Chloride 0.9% 10 ML Syringe FLUSH PRN (08:16)
[2024-12-16 11:46] LABS: IONIZED CA@PH7.4 1.17 mmol/L (1.09-1.30); IONIZED CALCIUM 1.12 mmol/L (1.09-1.30)
[2024-12-16] MEDS: Metoprolol Tartrate 5 MG/5 ML SDV IVPUSH ONE (21:17)
[2024-12-18 09:52] VITALS: BP 141/79; PULSE 94
== END 2024-12-18 10:17 | disposition home or self-care (01) | DRG 897 ==
LOC: DL.ED 18:38 → DL.MS 19:57
PROVIDERS: ADMIT Internal Medicine; ATTEND Internal Medicine
PROC: HZ2ZZZZ Detoxification Services for Substance Abuse Treatment (ICD-10-PCS; principal; 2024-12-13)
DX: F10.221 Alcohol dependence with intoxication delirium (principal); E87.20 Acidosis, unspecified; R45.851 Suicidal ideations; E46 Unspecified protein-calorie malnutrition; F10.239 Alcohol dependence with withdrawal, unspecified; K21.9 Gastro-esophageal reflux disease without esophagitis; Y90.8 Blood alcohol level of 240 mg/100 ml or more; E83.51 Hypocalcemia; I10 Essential (primary) hypertension; J45.909 Unspecified asthma, uncomplicated; F41.9 Anxiety disorder, unspecified; E66.9 Obesity, unspecified; E88.89 Other specified metabolic disorders; Z96.651 Presence of right artificial knee joint; E87.6 Hypokalemia; F32.A Depression, unspecified; E53.8 Deficiency of other specified B group vitamins; Z68.39 Body mass index [BMI] 39.0-39.9, adult
CPT/HCPCS: 36415; 71045; 80048; 80053; 80076; 80305-QW; 80307; 82330; 82550; 82607; 82746; 83735; 83880; 84100; 84484; 85025; 85027; 93005; 93010; 96365; 96375; 99223; 99232; 99239; 99284; 99285-25; A9270-GY; J0616; J1644; J1808; J2405; J2470; J3360; J3411; J3480; J3490; J7120; S5010